=== PATIENT | male | born 1950 | race Caucasian/White ===

== ENCOUNTER 2022-04-22 08:15 | Outpatient (CLI) | payer MEDICARE, SELFPAY ==
--- NOTE | ~2022-04-22 | NM_ITS ---
EXAMINATION: NM bone scan whole body DATE: 04/22/2022 13:20 INDICATION: Prostate cancer. TECHNIQUE: 25.7 mCi Tc-99m HDP was administered intravenously. Delayed whole-body scintigrams were o btained. COMPARISON: CT abdomen and pelvis 04/22/2022 FINDINGS: There is joint-centered increased activity at the sternoclavicular joints, acromioclavicula r joints, knees, and feet, likely osteoarthritis. IMPRESSION: 1. No evidence of metastatic disease. Reviewed, dictated and finalized at location A.
--- NOTE | ~2022-04-22 | CT_ITS ---
EXAMINATION: CT abdomen pelvis w con DATE: 04/22/2022 08:43 INDICATION: Carcinoma of prostate. TECHNIQUE: Computed tomography (CT) of the abdomen and pelvis was performed with 100 mL Omnipaque 350 intravenous contrast. Automated exposure control and iterative reconstruction technique were employe d. The dose-length product was 1435.40 mGy-cm. COMPARISON: CT abdomen and pelvis 05/13/2019 FINDINGS: The visualized portions of the lung bases demonstrate calcified right lower lobe nodules, c onsistent with old granulomatous disease. No pleural effusion. The heart size is normal. No pericardi al effusion. Calcifications in the liver and spleen are consistent with old granulomatous disease. Th e gallbladder, pancreas, adrenal glands, and kidneys are normal. There are no dilated loops of bowel. There is prominent fat in the inguinal canals that may be hernias. There are no dilated loops of bow el. The appendix is normal. There are no pathologically enlarged lymph nodes. There is an umbilical h ernia containing fat. There is no free intraperitoneal fluid. There is moderate lower lumbar spondylo sis. IMPRESSION: 1. No evidence of metastatic disease. Reviewed, dictated and finalized at location A.
[2022-04-22 08:39] LABS: Estimated Glomerular Filt Rate > 60
== END 2022-04-22 08:16 | disposition home or self-care (01) ==
PROVIDERS: PCP Family Medicine; Visit Provider Urology
DX: C61 Malignant neoplasm of prostate (principal)
CPT/HCPCS: 74177; 78306; A9561; Q9967

== ENCOUNTER 2022-09-09 08:51 | Outpatient (CLI) | payer MEDICARE, SELFPAY ==
--- NOTE | 2022-10-08 09:38 | WPDSLEEPSTUD ---
Sleep Study Date of Study: 09/09/22 Ordering Provider: Mau Caceres MD Interpreting Physician: Cherri Solis MD Sleep Study Type: Split Polysomnogram Height: 1.78 m Weight: 108.862 kg Body Mass Index: 34.4 Neck Circumference (inches): 19 Home: 14 Reason for Sleep Study * Home sleep test July 03, 2021 within a AHI of 16.4, desaturation to 78% and 23.7 minutes spent below 88%;he presents now for a titraiton. Sleep History Sal Chapa is 72-year-old man who was recommended to have sleep study by his industrial gas production operator due to a home sleep test showing an AHI of 16.4 and desaturation to 78%. The patient frequently awakens at night with heartburn, belching or coughing. He always snores and frequently it is loud enough that others complain. He frequently has trouble sleeping with a cold. He rarely wakes up gasping for breath at night, sweating excessively or noticing his heart pounding or beating irregularly at night. He always falls asleep during the day, always falls asleep involuntarily but never while driving. He does not have loss of muscle tone with strong emotion. He occasionally it is daytime difficulties due to excessive sleepiness. He rarely feels paralyzed on waking or falling asleep, rarely has vivid dreamlike scenes upon awakening or falling asleep. He is never afraid to go to sleep. Occasionally has nightmares. He occasionally remembers his dreams. He frequently has racing thoughts. He rarely feels sad or depressed. He occasionally has anxiety. Occasionally has muscular tension. He does not notice parts of his body jerking. He occasionally kicks at night, occasionally has crawling and aching feelings in his legs and leg pain during the night. He does not have morning jaw pain. He frequently grinds his teeth during sleep. He occasionally is bothered by pain during the day. He rarely is awakened by pain at night. He frequently wakes up feeling stiff in the morning with sore achy muscles. He rarely wakes up with pain in the neck and spine. He has memory problems, fatigue and he takes antacids regularly. He has gained weight in the last year. Normal bedtime is 11:30 p.m. typically waking up 3 times during the night to go to the bathroom, and sometimes with difficulty returning to sleep. He is not able to return to sleep easily he watches television. Usually he is able to return to sleep within 10-15 minutes. He wakes the morning at 7:30 a.m.. Weekend schedule is similar, wakes between 8 and 9 in the morning. He estimates getting between 5 and 7 hours of sleep at night. He takes naps. A short nap is not refreshing. He is usually drowsy for 2 hours after waking. He feels better in the afternoon compared to other times of day. Habits: Quit tobacco 30 years ago. No caffeine, alcohol or recreational substances. 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 His Elizabeth is a durable power internal audit consultant for healthcare. He is full code. He has 2 children Smoking packs per day: 1 Smoking cigarettes per day: 20.0 Years smoked: 3 Smoking pack-years: 3.00 Smoking status: Former smoker Tobacco type: cigarettes Smoking end date: 04/21/94 Alcohol intake: never Substance use: never Living arrangements: with f
[2022-10-08 21:16] VITALS: BMI 34.4
== END 2022-09-10 08:02 | disposition home or self-care (01) ==
LOC: ANHCSM 08:53
PROVIDERS: PCP Family Medicine; Visit Provider Internal Medicine Cardiovascular Disease
DX: G47.33 Obstructive sleep apnea (adult) (pediatric) (principal); K21.9 Gastro-esophageal reflux disease without esophagitis; E78.5 Hyperlipidemia, unspecified; I10 Essential (primary) hypertension; Z87.891 Personal history of nicotine dependence
CPT/HCPCS: 95811

== ENCOUNTER 2023-06-23 11:39 | Outpatient (CLI) | payer MEDICARE, SELFPAY ==
[2023-06-23 15:55] LABS: Prostate Specific Antigen < 0.1 ng/mL (< OR = 4.0)
== END 2023-06-23 11:40 | disposition home or self-care (01) ==
PROVIDERS: Radiology Radiation Oncology; PCP Family Medicine; Visit Provider Internal Medicine Hematology & Oncology
DX: C61 Malignant neoplasm of prostate (principal)
CPT/HCPCS: 36415; 84153

== ENCOUNTER 2023-08-12 16:37 | Emergency (ER) | payer MEDICARE, SELFPAY ==
[2023-08-12] VITALS (8 sets, daily range): BP systolic 137–165; BP diastolic 73–87; PULSE 63–77; RESP 17–20; TEMP 36–36.6; O2SAT 95–98
--- NOTE | ~2023-08-12 | CT_ITS ---
EXAMINATION: CTA brain carotid DATE: 08/12/2023 20:17 INDICATION: Dizziness. Vertigo. TECHNIQUE: Computed tomographic angiography (CTA) of the head was performed without and with 100 mL O mnipaque-350 intravenous contrast. CTA of the neck was performed with intravenous contrast. Automated exposure control and iterative reconstruction technique were employed. The dose-length product was 1 914.11 mGy-cm. Maximum intensity projection and volume rendered 3D-reconstructions were created by roger leavitt technologist on a separate workstation. COMPARISON: None. FINDINGS: HEAD CTA: There is no intracranial hemorrhage, acute infarction, or abnormal intracranial mass lesion . There are scattered areas of low attenuation in the cerebral white matter. The ventricles are roel l in size. There is mild mucosal thickening in the paranasal sinuses. There is a small right mastoid effusion. There is a normal. The vertebral arteries are codominant. There is no significant stenosis of basilar artery or the posterior cerebral arteries. There is no significant stenosis of the intracr anial internal carotid arteries or anterior or middle cerebral arteries. Anterior communicating arter y is normal. The posterior communicating arteries are normal. There is no aneurysm. NECK CTA: Calcified right hilar lymph nodes are consistent with old granulomatous disease. The lungs demonstrate mild atelectasis. There are nodules in the thyroid measuring up to 8 mm, likely not clini wilbur significant. There is no significant stenosis of the vertebral arteries. There is plaque in the proximal internal carotid arteries. There is 0% stenosis of the proximal right internal carotid danni ry relative to normal distal artery lumen diameter (NASCET criteria). There is 0% stenosis of the pro ximal left internal carotid artery relative to normal distal artery lumen diameter. There is moderate cervical spondylosis. IMPRESSION: 1. Mild nonspecific cerebral white matter disease, which likely represents chronic small vessel ische artie disease. 2. No aneurysm or significant intracranial internal stenosis. 3. 0% stenosis of the proximal internal carotid arteries relative to normal distal artery lumen diame ters (NASCET criteria). Reviewed, dictated and finalized at location E. ITAL SECRETARY IMPRESSION: 1. Mild nonspecific cerebral white matter disease, which likely represents grinder tender gilberto small vessel ischemic disease. 2. No aneurysm or significant intracranial internal stenosis. 3. 0% stenosis of the proximal internal carotid arteries relative to normal dis stefanie artery lumen diameters (NASCET criteria).
--- NOTE | 2023-08-12 16:38 | ECG_ITS ---
Measurements Intervals [place] Rate: 63 P: 25 FL: 174 QRS: 14 QRSD: 98 T: 29 QT: 397 QTc: 407 Interpretive Statements SINUS RHYTHM BORDERLINE LEFTWARD AXIS WITHIN NORMAL LIMITS COMPARED TO ECG 05/13/2019 08:38:54 NO SIGNIFICANT CHANGES Electronically Signed On 08-13-2023 12:23:52 COMMERCIAL TRUCK DRIVER by Rich Harrell M.D.
[2023-08-12 16:41] LABS: Glucose Point of Care 133 mg/dl (65-105)
[2023-08-12 16:55] LABS: Basophils Absolute Auto 0.1 K/mm3 (0.0-0.1); Basophils Percent Auto 0.9 % (0.2-1.2); Eosinophils Absolute Auto 0.3 K/mm3 (0-0.3); Hematocrit 41.9 % (42.0-52.0); Hemoglobin 13.2 g/dL (14.0-18.0); Immature Granulocyte Absolute 0.03 K/mm3 (0.00-0.031); Immature Granulocyte Percent A 0.5 % (0-0.5); Lymphocytes Absolute Auto 0.82 K/mm3 (0.9-3.2); Lymphocytes Percent Auto 14.5 % (18.3-44.2); Mean Corpuscular HGB Conc 31.5 g/dl (32-36); Mean Corpuscular Hemoglobin 29.8 pg (26-34); Mean Corpuscular Volume 94.6 fl (80-100); Mean Platelet Volume 9.2 fl (7.4-10.4); Monocytes Absolute Auto 0.7 K/mm3 (0.1-0.6); Monocytes Percent Auto 11.7 % (2.6-8.5); Neutrophils Absolute Auto 3.8 K/mm3 (1.3-6.7); Neutrophils Percent Auto 67.4 % (45.5-73.1); Platelet Count Result 206 k/mm3 (150-375); Red Blood Count 4.43 M/mm3 (4.6-6.20); Red Cell Distribution Width 13.3 % (11.5-14.5); White Blood Count 5.7 K/mm3 (4.5-10.0)
[2023-08-12 17:05] LABS: Alanine Aminotransferase 18 U/L (6-50); Albumin Level 3.9 g/dL (3.5-5.1); Alkaline Phosphatase 111 U/L (38-126); Anion Gap 10 mmol/L (8-16); Aspartate Amino Transferase 23 U/L (17-59); Bilirubin,Total 0.6 mg/dL (0.2-1.3); Blood Urea Nitrogen 12 mg/dL (9-20); Calcium 9.3 mg/dL (8.4-10.2); Carbon Dioxide 20 mmol/L (22-30); Chloride 108 mmol/L (98-107); Estimated CRCL calculation 101 ml/min; Estimated Glomerular Filt Rate > 60; Glucose 154 mg/dL (65-110); Potassium 3.9 mmol/L (3.4-5.0); Sodium 138 mmol/L (137-145)
[2023-08-12] MEDS: ONDANSETRON INJ 4 MG/2 ML VIAL IV PUSH (18:44)
[2023-08-12] MEDS: MECLIZINE HCL 25 MG TABLET PO (18:44)
[2023-08-12] MEDS: SODIUM CHLORIDE 0.9% IV 1,000 ML 999 ML IV CONT (18:44)
[2023-08-12 18:48] LABS: Magnesium 2.2 mg/dL (1.6-2.3)
[2023-08-12 19:01] LABS: INR 0.9; Prothrombin Time 12.6 Seconds (11.1-14.7); Troponin I < 0.012 ng/mL (0.000-0.034)
[2023-08-12 19:02] LABS: Partial Thromboplastin Time 27.7 SECONDS (22.3-36.8)
--- NOTE | 2023-08-12 20:10 | ED.GENADULT ---
HPI - General Adult General Chief complaint: Recheck/Abnormal Lab/Rx Stated complaint: blood sugar check/dizzy Time Seen by Provider: 08/12/23 18:15 Source: patient Mode of arrival: ambulatory Limitations: no limitations History of Present Illness HPI narrative: Patient is a 73-year-old male who presents the ED with report of dizziness. Patient reports he first noticed the dizziness around midnight this morning when he woke up. States he felt as though the room was spinning any time he tried to stand up or move. He rested most of the day, but continued to have dizziness with any movement. Worse with turning head to the left, standing, walking, sitting upright. He called his primary care doctor and was referred to the ED for further evaluation. He denies any history of previous dizziness or similar symptoms. Denies history of vertigo. Denies vision changes, headache, focal weakness or numbness, ear pain or ringing, chest pain, difficulty breathing. He did report nausea associated with the dizziness, denied vomiting. Related Data Home Medications Medication Instructions Recorded Confirmed multivit with minerals-iron 18 1 tablet PO [facility] 05/13/19 06/29/23 mg-folic ac 400 mcg-vit K 25 mcg tablet (Adults Multivitamin) carvedilol 12.5 mg tablet 12.5 mg PO BID 06/17/22 06/29/23 chlorthalidone 25 mg tablet 25 mg PO DAILY 06/17/22 06/29/23 cimetidine 200 mg tablet 200 mg PO BID 06/17/22 06/29/23 empagliflozin 25 mg tablet 25 mg PO DAILY 06/17/22 06/29/23 (Jardiance) finasteride 5 mg tablet 5 mg PO 06/17/22 06/29/23 metformin 1,000 mg tablet 1,000 mg PO BID 06/17/22 06/29/23 pravastatin 40 mg tablet 40 mg PO 06/17/22 06/29/23 sennosides 8.6 mg-docusate sodium 1 tab-cap PO HS 06/17/22 06/29/23 50 mg tablet tamsulosin 0.4 mg capsule 0.4 mg PO BID 06/17/22 06/29/23 docusate sodium 100 mg capsule 100 mg PO DAILY 08/24/22 06/29/23 Allergies Allergy/AdvReac Type Severity Reaction Status Date / Time sulfamethoxazole Allergy Intermediate Rash Verified 06/29/23 09:55 trimethoprim Allergy Intermediate Rash Verified 06/29/23 09:55 Review of Systems Review of Systems: CONSTITUTIONAL: Denies fever, chills, or sweats. ENT: Denies vision changes. CARDIOVASCULAR: Denies chest pain. RESPIRATORY: Denies dyspnea. GASTROINTESTINAL: Reports nausea. NEUROLOGIC: See HPI. 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 He is full code. He has 2 children Smoking packs per day: 1 Smoking cigarettes per day: 20.0 Years smoked: 3 Smoking pack-years: 3.00 Smoking status: Former smoker Tobacco type: cigarettes Smoking end date: 04/21/94 Alcohol intake: never Substance use: never Living arrangements: with family Occupation/Education: occupation Additional occupation/education comments: Self a blood Gender identity (if verbalized by the patient): Male Spiritual care concerns: No Agree to blood products: Yes Exam Narrative: GENERAL: Well appearing, obese with BMI of 38.1, non-toxic, in no acute distress. HEAD: Normocephalic, atraumatic. EYES: PERRL/EOMI, co
[2023-08-12] MEDS: diazePAM INJ (*CRX) 10 MG/2 ML SYRINGE 2 MG IV PUSH (22:05)
== END 2023-08-12 23:15 | disposition home or self-care (01) ==
PROVIDERS: Emergency Medicine; Emergency Provider Physician Assistant; PCP Family Medicine
DX: R42 Dizziness and giddiness (principal); E78.5 Hyperlipidemia, unspecified; I10 Essential (primary) hypertension; E11.9 Type 2 diabetes mellitus without complications; N40.0 Benign prostatic hyperplasia without lower urinary tract symptoms; G47.30 Sleep apnea, unspecified; K21.9 Gastro-esophageal reflux disease without esophagitis; Z86.14 Personal history of Methicillin resistant Staphylococcus aureus infection; Z87.891 Personal history of nicotine dependence; Z79.84 Long term (current) use of oral hypoglycemic drugs; R90.82 White matter disease, unspecified
CPT/HCPCS: 36415; 70496; 70498; 80053; 82948; 83735; 84484; 85025; 85610; 85730; 93005; 96361; 96374; 96375; 99284; A9270; J2405; J3360; J7030; Q9967

== ENCOUNTER 2023-11-29 10:14 | Outpatient (CLI) | payer MEDICARE, SELFPAY ==
--- NOTE | ~2023-11-29 | DEXA_ITS ---
Bone Density Report Name: ARCHANA SRIVASTAVA Age: 73 Sex: Male Ethnicity: White Date of : 1950 Indication: screening for osteoporosis; cancer; Referring Provider: UNKNOWN, UNKNOWN Study: Bone densitometry was performed. Exam Date: November 29, 2023 Accession number: [id number] Bone Density: Region BMD T-score Z-score Classification AP Spine(L1-L4) 0.918 -1.6 -0.6 Osteopenia Femoral Neck (Left) 0.669 -1.9 -0.7 Osteopenia Total Hip (Left) 0.862 -1.1 -0.4 Osteopenia Femoral Neck (Right) 0.581 -2.6 -1.3 Osteoporosis Total Hip (Right) 0.783 -1.7 -0.9 Osteopenia Total Hip Mean 0.822 -1.4 -0.7 Osteopenia World Health Organization criteria for BMD impression classify patients as: Normal (T-score at or above -1.0), Osteopenia (T-score between -1.0 and -2.5), or Osteoporosis (T-score at or below -2.5). Clinical Information Provided by Patient: Has the following medical conditions: Cancer Patient maximum height was 67 No regular weight bearing exercise Drinks caffeinated beverages Impression: The patient has osteoporosis, based on the Right Femoral Neck T-score. Discussion: INCREASED RISK OF FRACTURE. BONE DENSITY IS UNDESIRABLY LOW AT ONE OR MORE SKELETAL SITES, CONSISTENT WITH OSTEOPOROSIS. This patient's lowest T-score meets the World Health Organization's (WHO) criteria for osteoporosis at one or more sites (T-score -2.5 or below). In untreated patients, the risk of osteoporotic fracture increases approximately two-fold for each 1.0 SD decrease in T-score. Low bone density is not the only risk factor for fracture; also consider factors such as patient's age, frailty or poor health, risk of falling, risk of injury, previous osteoporotic fracture, family history of osteoporosis, cigarette smoking, low body weight, etc. Not everyone with low bone mineral density has osteoporosis; osteomalacia and other metabolic bone disorders should also be considered. Patients who have osteoporosis should be evaluated for specific diseases and conditions (secondary causes) that may cause or contribute to bone loss. The National Osteoporosis Foundation (NOF) recommends pharmacologic intervention for men with BMD at this level (a T-score of -2.5 or below). The patient should follow a healthful lifestyle (good nutrition with adequate calcium and vitamin D, and appropriate weight-bearing exercise). Follow-Up: Consider repeating this study in 2 years to reassess this patient's status, or sooner if there is some new clinical indication. Reported by: ROBIN on 11/29/2023 10:38:00 AM. Reviewed, dictated and finalized at location AJos [facility]
== END 2023-11-29 10:15 | disposition home or self-care (01) ==
PROVIDERS: PCP Family Medicine
DX: M85.88 Other specified disorders of bone density and structure, other site (principal); M85.852 Other specified disorders of bone density and structure, left thigh; M85.851 Other specified disorders of bone density and structure, right thigh; M81.0 Age-related osteoporosis without current pathological fracture; Z79.818 Long term (current) use of other agents affecting estrogen receptors and estrogen levels
CPT/HCPCS: 77080